=== PATIENT | female | born 1990 | race Caucasian/White ===

== ENCOUNTER 2020-09-19 22:51 | Emergency (ER) | payer SELFPAY ==
[~2020-09-19] VITALS: Ht 152.4 cm; Wt 54.4 kg
[2020-09-19 23:11] VITALS: Ht 152.4 cm; Wt 54.4 kg
[2020-09-19 23:34] LABS: BASOPHILS 0.5 % (0-2); EOSINOPHILS 5.6 % (0-7); HEMATOCRIT 39.7 % (36.0-48.0); HEMOGLOBIN 12.9 g/dL (12-16); LYMPHOCYTE ABS# 1.45 10x3/uL (1.18-3.74); LYMPHOCYTES 25.5 % (15-50); MCH 27.9 pg (26.0-34.0); MCHC 32.5 g/dL (31.0-37.0); MCV 85.9 fL (80.0-100.0); MONOCYTES 6.9 % (2-11); NEUTROPHILS 61.5 % (40-80); RBC 4.62 10x6/uL (4.00-5.40); RDW 14.4 % (11.5-14.5); WBC 5.7 10x3/uL (4.8-10.8)
[2020-09-19 23:35] LABS: PLATELET COUNT 305 10x3/uL (130-400)
[2020-09-19 23:45] LABS: CALC OSMOLALITY 281 mosm/kg (275-300); CALCIUM 8.5 mg/dL (8.5-10.1); CARBON DIOXIDE 28.7 mmol/L (21.0-32.0); CHLORIDE - SERUM 104 mmol/L (98-107); CREATININE - SERUM 0.8 mg/dL (0.6-1.3); GLUCOSE 86 mg/dL (74-106); POTASSIUM - SERUM 3.6 mmol/L (3.5-5.1); SODIUM 141 mmol/L (136-145); UREA NITROGEN 18 mg/dL (7-18); eGFR NON AFRICAN AMERICAN 89 mL/min (90-120)
[2020-09-19 23:47] LABS: HCG SERUM NEGATIVE (NEGATIVE)
[2020-09-19 23:57] LABS: ALBUMIN 3.7 g/dL (3.4-5.0); ALKALINE PHOSPHATASE 114 U/L (30-120); ALT (SGPT) 19 U/L (10-68); BILIRUBIN - TOTAL 0.14 mg/dL (0.2-1.3); HCG - QUANTITATIVE (MATERNAL) 0 mIU/mL; PROTEIN - SERUM 7.2 g/dL (6.4-8.2)
[2020-09-20 05:22] VITALS: BP 100/56
== END 2020-09-20 05:23 | disposition home or self-care (01) ==
LOC: D.ER 22:51
PROVIDERS: Family Medicine
DX: R10.30 Lower abdominal pain, unspecified (principal)